=== PATIENT | female | born 1990 | race Caucasian/White ===

== ENCOUNTER 2017-05-23 15:45 | Day surgery (SDC) | payer BC ==
[~2017-05-23] VITALS: Ht 162.6 cm; Wt 100.9 kg
[2017-05-23 16:31] LABS: HEMATOCRIT 38.8 % (36.0-46.0); HEMOGLOBIN 13.1 G/DL (11.9-15.5); MCH 29.6 PG (29.0-34.0); MCHC 33.8 G/DL (30.0-36.0); MCV 87.6 FL (83-99); PLATELET COUNT 296 K/uL (156-360); RBC DIS.WIDTH-CV 13.2 % (11.8-14.6); RBC DIS.WIDTH-SD 42.4 % (39-53); RED BLOOD COUNT 4.43 M/uL (3.80-5.20); WHITE BLOOD COUNT 17.8 K/uL (4.1-10.2)
[2017-05-23 16:43] LABS: ALBUMIN 4.3 g/dL (3.2-4.8)
[2017-05-23 16:44] LABS: CHLORIDE 104 mEq/L (99-109); POTASSIUM 3.9 mEq/L (3.7-5.4); SODIUM 136 mEq/L (136-147)
[2017-05-23 16:46] LABS: GLUCOSE 131 mg/dL (70-99); TOTAL PROTEIN 7.5 g/dL (6.4-8.3)
[2017-05-23 16:48] LABS: TOTAL BILIRUBIN 0.2 mg/dL (0.0-1.0)
[2017-05-23 16:49] LABS: ALKALINE PHOSPHATASE 55 IU/L (3-129)
[2017-05-23 16:50] LABS: CREATININE 0.8 mg/dL (0.6-1.3)
[2017-05-23 16:51] LABS: AST (GOT) 12 IU/L (2-34); GFR ESTIMATE (CALCULATED) > 59 mL/min/; UREA NITROGEN (BUN) 13 mg/dL (9-23)
[2017-05-23 16:52] LABS: ALT (GPT) 7 IU/L (3-49)
[2017-05-23 16:59] LABS: QUANTITATIVE HCG < 4.0 MIU/ML
[2017-05-23] MEDS ORDERED: ZOFRAN4 MG PO (19:33)
[2017-05-23] MEDS ORDERED: PEPCID20 MG PO (19:33)
[2017-05-23 19:38] LABS: APPEARANCE SL.HAZY ((CLEAR)); BILIRUBIN NEGATIVE; BLOOD NEGATIVE; COLOR YELLOW ((YELLOW)); GLUCOSE (STRIP) NEGATIVE; KETONES NEGATIVE; LEUKOCYTES NEGATIVE; NITRITE NEGATIVE; PROTEIN (STRIP) 30; UROBILINOGEN 0.2 MG/DL (0.2-1.0)
[2017-05-23 19:47] LABS: BACTERIA NONE SEEN /HPF; EPITHELIAL CELLS RARE /HPF; MUCUS TRACE /LPF; RED BLOOD CELLS 0-5 /HPF (0-5); UCUL ADDED? NO; WHITE BLOOD CELLS 0-5 /HPF (0-5)
[2017-05-24 03:58] VITALS: BP 116/61
[2017-05-24 06:43] LABS: BASOPHIL (%) 0.2 % (0-1); BASOPHIL COUNT 0.1 K/uL (0-0.1); EOSINOPHIL (%) 0 % (0-5); HEMATOCRIT 40.5 % (36.0-46.0); HEMOGLOBIN 13.8 G/DL (11.9-15.5); IMMATURE GRANULOCYTE (%) 0.5 % (0.0-0.7); LYMPHOCYTE COUNT 1.3 K/uL (1.0-2.8); MCH 29.6 PG (29.0-34.0); MCHC 34.1 G/DL (30.0-36.0); MCV 86.9 FL (83-99); MONOCYTE (%) 3.7 % (3-12); NEUTROPHIL (%) 90.6 % (45-76); NEUTROPHIL COUNT 24.4 K/uL (1.8-6.4); PLATELET COUNT 321 K/uL (156-360); RBC DIS.WIDTH-CV 13.4 % (11.8-14.6); RBC DIS.WIDTH-SD 42.3 % (39-53); RED BLOOD COUNT 4.66 M/uL (3.80-5.20); WHITE BLOOD COUNT 26.9 K/uL (4.1-10.2)
[2017-05-24 07:10] VITALS: BP 115/56
[2017-05-24 07:23] LABS: ALBUMIN 3.8 G/DL (3.2-4.8); ALKALINE PHOSPHATASE 46 IU/L (3-129); ALT (GPT) 6 IU/L (3-49); AST (GOT) 11 IU/L (2-34); CHLORIDE 102 MEQ/L (99-109); CREATININE 0.7 MG/DL (0.6-1.3); GFR ESTIMATE (CALCULATED) > 59 mL/min/; GLUCOSE 109 mg/dL (70-99); MAGNESIUM 1.5 mg/dl (1.3-2.7); POTASSIUM 4.2 MEQ/L (3.7-5.4); SODIUM 137 MEQ/L (136-147); TOTAL BILIRUBIN 0.5 MG/DL (0.0-1.0); TOTAL PROTEIN 6.4 G/DL (6.4-8.3); UREA NITROGEN (BUN) 8 mg/dL (9-23)
[2017-05-24] MEDS ORDERED: PERCOCET 5/31 TABLET PO (11:42)
[2017-05-24 11:45] VITALS: BP 111/62
== END 2017-05-24 13:48 | disposition home or self-care (01) ==
LOC: EME 15:45 → SDC 05-24 00:16 → EME 05-24 00:16 → 2SOUTH 05-24 02:16 → ENRESERV 05-24 02:46 → 2EASTP 05-24 03:54
PROVIDERS: Surgery
PROC: 0WUF4JZ Supplement Abdominal Wall with Synthetic Substitute, Percutaneous Endoscopic Approach (ICD-10-PCS; principal; 2017-05-24)
DX: K43.0 Incisional hernia with obstruction, without gangrene (principal); R11.2 Nausea with vomiting, unspecified; Z88.0 Allergy status to penicillin; F17.210 Nicotine dependence, cigarettes, uncomplicated; E66.9 Obesity, unspecified; Z68.38 Body mass index [BMI] 38.0-38.9, adult
CPT/HCPCS: 74177; 80053; 81003; 82948; 83735; 84100; 84702; 85025; 85027; 88302; 99281; 99285; C1781; G0378; J0330; J0744; J1100; J1170; J1200; J1885; J2175; J2405; J2710; J2765; J3010; J7030; J7120